=== PATIENT | female | born 1990 ===

== ENCOUNTER 2017-11-23 01:31 | Inpatient (IN) | payer MEDICAID ==
[2017-11-23 02:02] VITALS: BMI 35.5
[2017-11-23] MEDS ORDERED: Oxytocin 30 units/LR 500ML 30 UNITS/500 ML BAG IV ONE (02:09)
[2017-11-23] MEDS ORDERED: Lidocaine 2% Inj (20ml) ONE (02:09)
[2017-11-23] MEDS ORDERED: Lactated Ringer's 1,000 ML IV SCH (02:15)
[2017-11-23] MEDS ORDERED: Penicillin G 5 Million Unit Vial IVPB ONE (02:18)
--- NOTE | 2017-11-23 02:35 | OBADHP ---
Datetime: 11/23/2017 02:17 IP Adm Impression Other: GBS Positive Admit Comment, IP Provider: 27yo with IUP at 38.3 weeks reports here today c/o SROM and uter ine contractions for the past 2 hours. Denies any VB and feels Good movements. PNC from [facility] and had GBS positive in current . ABD: Soft, NT Bs presnent TOCO- Q 2-3 FHR- 140s reactive Cx: 7/100/-2 Vtx Assessment: IUP at 38wks in Active Labor NST- Reactive GBS positive Plan: Admit to LND Monitor progress of labor PCN for GBS prophylaxis. Pelvic Type - PN: Adequate Extremities - PN: Normal Abdomen - PN: Normal Back - PN: Normal Breast - PN: Normal Lungs - PN: Normal Heart - PN: Normal Thyroid - PN: Normal Neurologic - PN: Normal HEENT - PN: Normal General - PN: Normal Presentation-Admit: Vertex FHR - Baseline A Provider: 140s Amniotic Fluid Color, Provider: Clear Membranes, Provider: Ruptured Gestation - Est Wks by US: 38.3 IP Chief Complaint: Uterine contractions; Suspected ruptured membranes NICHD Variability Prov Fetus A: Moderate 6-25bpm NICHD Accel Fetus A IP Provider: [id number] FHR Category Provider Fetus A: Category II Dilatation, Provider: 7 Effacement, Provider: 100 Station, Provider: -2 Genitourinary Exam: Normal DTRs - PN: Normal EGA AdmitDate IP: 38.3 IP Adm Impression: Term, intrauterine ; Active labor IP Admit Plan: Admit to unit; Initiate labor protocol
[2017-11-23 02:38] LABS: BASO % 0.3 % (0.0-2.0); EOS # 0.2 K/uL (0.0-0.7); EOS % 1.7 % (0.0-4.0); HEMOGLOBIN 12.8 g/dL (12.0-16.0); LYMPH # 3.8 K/uL (1.0-4.3); LYMPH % 38.8 % (20.0-40.0); MEAN CELL VOLUME 92.8 fl (81.0-99.0); MEAN CORPUSCULAR HGB CONC 34.5 g/dL (33.0-37.0); MEAN PLATELET VOLUME 8.7 fl (7.2-11.7); MONO # 1.2 K/uL (0.0-0.8); MONO % 11.9 % (0.0-10.0); NEUT # 4.7 K/uL (1.8-7.0); NEUT % 47.3 % (50.0-75.0); NRBC % 0.1 % (0.0-0.0); RED CELL DISTRIBUTION WIDTH 16.4 % (11.5-14.5); WHITE BLOOD COUNT 9.9 K/uL (4.8-10.8)
--- NOTE | 2017-11-23 02:38 | OBDS ---
MATERNAL INFORMATION Provider Comments: Uncomplicated Spontaneous vaginal delivery of a viable male infant with BW of 8 i bs 3.9 oz and scores of 9 and 9 delivered in the LIBBY position over an Intact perineum. EBL- 300mls Pt tolerated the procedure well. LABOR SUMMARY EDC: 12/04/2017 00:00 No. Babies in Womb: 1 Attempted: No Labor Anesthesia: IV Sedation LABOR INFORMATION Reason for Induction: Not Applicable Onset of Labor: 11/22/2017 22:00 Group B Beta Strep: Positive Antibiotics # of Doses: 1 Antibiotics Time of Last Dose: 0220 Steroids Given: None Reason Steroids Not Administered: Not Applicable MEMBRANES Membranes Rupture Method: Spontaneous Rupture of Membranes: 11/23/2017 00:50 Length of Rupture (hrs): 1.60 Amniotic Fluid Color: Clear Amniotic Fluid Amount: Moderate BABY A INFORMATION Delivery Date/Time: 11/23/2017 02:26 Method of Delivery: Vaginal Born in Route : No : N/A Forceps: N/A Vacuum Extraction: N/A Shoulder Dystocia : No SHOULDER DYSTOCIA BABY A Infant Delivery Date/Time: 11/23/2017 02:26 INFANT INFORMATION BABY A Gestational Age at Delivery: 38.3 Gestational Status: Term Infant Outcome : Liveborn Infant Condition : Stable Sex: Male WEIGHT/LENGTH BABY A Infant Birthweight (gms): 3740 Weight (lb): 8 Infant Weight (oz): 4
[2017-11-23] MEDS ORDERED: Oxytocin 30 units/LR 500ML 30 U/500 ML BAG IV ONE (02:49)
[2017-11-23 02:57] LABS: BLOOD UREA NITROGEN 7 mg/dl (7-17); CALCIUM 9.8 mg/dL (8.4-10.2); GFR AFRICAN-AMERICAN > 60; GFR NON-AFRICAN AMERICAN > 60
[2017-11-23 03:04] VITALS: RESP 18
[2017-11-23 10:46] LABS: BASO # 0.1 K/uL (0.0-0.2); BASO % 0.9 % (0.0-2.0); EOS # 0.1 K/uL (0.0-0.7); EOS % 0.8 % (0.0-4.0); HEMOGLOBIN 11.9 g/dL (12.0-16.0); LYMPH # 2.7 K/uL (1.0-4.3); LYMPH % 21.6 % (20.0-40.0); MEAN CELL VOLUME 93.4 fl (81.0-99.0); MEAN CORPUSCULAR HEMOGLOBIN 31.7 pg (27.0-31.0); MEAN PLATELET VOLUME 8.5 fl (7.2-11.7); MONO # 1.5 K/uL (0.0-0.8); MONO % 12.4 % (0.0-10.0); NEUT % 64.3 % (50.0-75.0); RBC 3.74 Mil/uL (3.80-5.20); RED CELL DISTRIBUTION WIDTH 16.6 % (11.5-14.5); WHITE BLOOD COUNT 12.5 K/uL (4.8-10.8)
--- NOTE | 2017-11-24 12:29 | OBPPN ---
Datetime: 11/24/2017 05:56 PP Pain Prov: Within normal limits PP Nausea Prov: Denies PP Flatus Prov: Yes PP BM Prov: No PP Breasts Prov: Normal PP Heart Prov: Normal PP Lungs Prov: Normal PP Abdomen/Uterus Prov: Normal PP Lochia Prov: Normal PP Vulva/Perineum Prov: Normal PP CVA Tenderness Prov: Normal PP Extremities Prov: Normal PP C/S Incision Prov: Not Applicable PP Progress Prov: Normal PP Impression Prov: Normal progression PP Plan Prov: Continue present management PP Progress Note Prov: S: 27 YO , PPD1, s/p NVD on 11/23/17, GA 38.3. Pt is seen and examined by bedside this AM. No acute event overnight. Pt is endorsing abdominal pain is well controlled on medic ations. Ambulating, Bleeding has improved since delivery. Tolerating PO diet. Passing gas but denies BM. Denies chest pain, dyspnea, n/v, fever/chills, diarrhea, nausea/vomiting, and calf pain. O: VS: wnl, afebrile GEN: Awake, alert and baby girl by bedside. Sleepy HEENT: EOMI, moist mucosa. LUNGS: CTA B/L, no wheezing, rhonci, or rales CVS: RRR, S1, S2 no murmurs ABD: ND, +BS, soft abdomen, firm fundus, below umbilicus. EXT: No edema, neg calf tenderness NEURO/PSYCHI: AAOx3, no grossly focal deficit, preserved affect and mood. Assessment/Plan: 27 YO , PPD1, s/p NVD on 11/23/17, GA 38.3, gave to a baby boy. Pt remai ns afebrile, tolerating pain with medication, good PO intake and urinating without any difficulties. Doing well on PPD1. -C/w regular diet as tolerated. -OOB with caution SCDs for DVT prophylaxis -Ibuprofen 600 mg/Percocet for pain prn -C/w Colace 100mg PO BID PRN -Encourage and ambulation. Rodney Campos, PGY-1 ob attending addendum pt seen _ examined by me. agree w/ assessment and plan. desires circ for son. understands is an elective procedure. risks d/w pt informed consent obtaine d. IP PP Procedures: None Vital Signs Provider PP: Reviewed; Within Normal Limits
--- NOTE | 2017-11-25 08:52 | OBPPN ---
Datetime: 11/25/2017 05:44 PP Pain Prov: Within normal limits PP Nausea Prov: Denies PP Flatus Prov: Yes PP BM Prov: No PP Heart Prov: Normal PP Lungs Prov: Normal PP Abdomen/Uterus Prov: Normal PP Lochia Prov: Normal PP Vulva/Perineum Prov: Normal PP CVA Tenderness Prov: Normal PP Extremities Prov: Normal PP Progress Prov: Normal PP Impression Prov: Normal progression PP Plan Prov: Continue present management PP Progress Note Prov: S: 27 YO , PPD2, s/p NVD on 11/23/17, GA 38.3. Pt is seen and examined by bedside this AM. No acute event overnight. Pt is endorsing mild abdominal pain and well controlled on medications. Ambulating, Bleeding has improved since delivery. Tolerating PO diet. Passing gas but d enies BM. Denies chest pain, dyspnea, n/v, fever/chills, diarrhea, nausea/vomiting, and calf pain. O: VS: wnl, afebrile GEN: Awake, alert and baby girl by bedside. Sleepy HEENT: EOMI, moist mucosa. LUNGS: CTA B/L, no wheezing, rhonci, or rales CVS: RRR, S1, S2 no murmurs ABD: ND, +BS, soft abdomen, firm fundus, below umbilicus. EXT: No edema, neg calf tenderness NEURO/PSYCHI: AAOx3, no grossly focal deficit, preserved affect and mood. Assessment/Plan: 27 YO , PPD2, s/p NVD on 11/23/17, GA 38.3, gave to a baby boy. Pt remai ns afebrile, tolerating pain with medication, good PO intake and urinating without any difficulties. Doing well on PPD2. -C/w regular diet as tolerated. -OOB with caution SCDs for DVT prophylaxis -Ibuprofen 600 mg/Percocet for pain prn -C/w Colace 100mg PO BID PRN -Encourage and ambulation. -Possible discharge home today, patient is aware and all the questions were answered --- Rodney Campos, PGY-1 OB Hospitalist on-call. Pt seen and agree with note - discharge home SHIRA CASTILLO PP Procedures: None Vital Signs Provider PP: Reviewed; Within Normal Limits
--- NOTE | 2017-11-25 08:52 | OBDCSUM ---
Datetime: 11/25/2017 05:46 Discharged to, Provider: Home Follow up at, Provider: Dc Disch Instr Activity: Normal activity Disch Instr Diet: Regular Discharge Instructions, Provider: Routine instructions given Discharge Diagnosis, Provider: Term Delivered Follow up in weeks, Provider: PP visit 4 to 6 wks, Peds 2 to 3 days Disch Referrals: None Contraception discussed, Prov: Yes Discharge Comment, Provider: 27 YO , PPD2, s/p NVD on 11/23/17, GA 38.3, gave to a baby boy . of 8/9 and weight of 3740g. No complications during the post- period. Pt is tolerating PO diet, pain is well controlled, and ambulating without difficulties. Passing gas, but no BM O: VS: wnl, afebrile GEN: Awake, alert and baby boy by bedside. Sleepy HEENT: EOMI, moist mucosa. LUNGS: CTA B/L, no wheezing, rhonci, or rales CVS: RRR, S1, S2 no murmurs ABD: ND, +BS, soft abdomen, firm fundus, below umbilicus. EXT: No edema, neg calf tenderness NEURO/PSYCHI: AAOx3, no grossly focal deficit, preserved affect and mood. Discharge Instructions: 1.Encourage and ambulation 2.PNV 1 tab po daily 3.Ibuprofen for mild-mod pain and colace for constipation 4.ER precautions: If excessive bleeding or fever without relief from medication, go to ED 5.F/U in 4-6 weeks with clinic and follow up in 2-3 days for baby. --- Rodney Campos, PGY I
[2017-11-25 20:57] VITALS: BP 112/70; PULSE 85; TEMP 97.6
== END 2017-11-25 16:55 | disposition home or self-care (01) | DRG 372 ==
LOC: H.EROB2 01:31 → H.L&D 02:02 → H.OB/GYN 04:00
PROVIDERS: ADMIT Obstetrics & Gynecology; ATTEND Obstetrics & Gynecology
PROC: 10E0XZZ Delivery of Products of Conception, External Approach (ICD-10-PCS; principal; 2017-11-23)
PROC: 4A1HXCZ Monitoring of Products of Conception, Cardiac Rate, External Approach (ICD-10-PCS; 2017-11-23)
DX: O99.824 Streptococcus B carrier state complicating childbirth (principal); O42.02 Full-term premature rupture of membranes, onset of labor within 24 hours of rupture; Z3A.38 38 weeks gestation of pregnancy; Z37.0 Single live birth; O69.81X0 Labor and delivery complicated by cord around neck, without compression, not applicable or unspecified